=== PATIENT | female | born 2000 ===

== ENCOUNTER 2019-10-30 18:58 | Emergency (ER) | payer SELFPAY ==
[2019-10-30 19:32] LABS: Influenza B Molecular POSITIVE (Negative)
--- NOTE | 2019-10-30 19:41 | UC ---
General HPI - HPI Summary HPI Summary: Sat. started w/ sore throat, then continued w/ fever, aches, chills. nothing makes it better/worse. has exam tomorrow and concerned she has flu. she did get the flu shot this year. - History of Current Complaint Chief Complaint: UCRespiratory Stated Complaint: RESP COMPLAINT Time Seen by Provider: 10/30/19 19:15 Hx Obtained From: Patient Hx Last Menstrual Period: 3 weeks ago Pain Intensity: 3 - Allergy/Home Medications Allergies/Adverse Reactions: Allergies Allergy/AdvReac Type Severity Reaction Status Date / Time No Known Allergies Allergy Verified 10/30/19 19:19 Home Medications: Home Medications Cholecalciferol TAB* [Vitamin D TAB*] 1,000 unit PO DAILY 10/30/19 [History Confirmed 10/30/19] Echinacea 380 mg PO DAILY 10/30/19 [History Confirmed 10/30/19] Ibuprofen [Advil] 400 mg PO Q6H PRN 10/30/19 [History Confirmed 10/30/19] PMH/Surg Hx/FS Hx/Imm Hx - Additional Past Medical History Additional PMH: no chronic illness. Previously Healthy: Yes - Surgical History Surgical History: Yes Surgery Procedure, Year, and Place: wisdom teeth - Family History Known Family History: Positive: Non-Contributory - Social History Alcohol Use: Occasionally Substance Use Type: Marijuana Substance Use Comment - Amount & Last Used: occasionally Smoking Status (MU): Never Smoked Tobacco Review of Systems All Other Systems Reviewed And Are Negative: Yes Constitutional: Positive: Fever, Chills, Fatigue Skin: Negative: Rash ENT: Positive: Sore Throat. Negative: Sinus Congestion Respiratory: Positive: Cough. Negative: Shortness Of Breath Cardiovascular: Negative: Chest Pain Neurological/Mental Status: Negative: Headache Physical Exam Triage Information Reviewed: Yes Appearance: Well-Appearing Vital Signs: Initial Vital Signs Temp 103.9 F 10/30/19 19:20 Pulse 105 10/30/19 19:20 Resp 18 10/30/19 19:20 BP 162/84 10/30/19 19:20 Pulse Ox 96 10/30/19 19:20 Vital Signs Reviewed: Yes Eyes: Positive: Conjunctiva Clear ENT: Positive: Pharyngeal erythema, Nasal congestion, TMs normal, Uvula midline Neck: Positive: Supple, Nontender, No Lymphadenopathy Respiratory Exam: Normal Cardiovascular Exam: Normal Neurological: Positive: Alert Skin: Negative: Rashes Course/Dx - Course Course Of Treatment: flu like illness w/ + flu today in a pt. that was vaccinated against flu this yr. Febrile today and she stated she has ibu on her right now she will take. She will discuss elevated BP w/ pcp. We discussed ways to manage and she declined tamiflu, we did disc meds side effects. - Differential Dx - Multi-Symptom Differential Diagnoses: Other - Diagnoses Provider Diagnosis: Influenza Discharge ED - Sign-Out/Discharge Documenting (check all that apply): Patient Departure All imaging exams completed and their final reports reviewed: No Studies - Discharge Plan Condition: Good Disposition: HOME Patient Education Materials: Influenza (ED) Forms: *School Release Referrals: No Primary Care Phys,NOPCP [Primary Care Provider] - Additional Instructions: Please read patient information. - Billing Disposition and Condition Condition: GOOD Disposition: Home - Attestation Statements Provider Attestation: This patient was not seen by me. I was available for consult. Chart reviewed. audrey
== END 2019-10-30 19:45 | disposition home or self-care (01) ==
LOC: UCEAST 18:58
DX: J11.1 Influenza due to unidentified influenza virus with other respiratory manifestations (principal)
CPT/HCPCS: 99201; G0463